=== PATIENT | female | born 2000 | race Caucasian/White ===

== ENCOUNTER 2024-08-21 17:58 | Emergency (ER) | payer OTHER, SELFPAY ==
--- NOTE | 2024-08-21 18:01 | ED_ITS ---
HPI - Ear Problem General Chief complaint: Ear Stated complaint: ear infection Time Seen by Provider: 08/21/24 18:00 Source: patient Mode of arrival: ambulatory Limitations: no limitations History of Present Illness HPI Narrative: Patient is a 24-year-old female who presents with right ear pain that started last night. Pain worsened around 4:00 a.m.. Patient has taken ibuprofen use warm compress with mild relief. It has been swimming a lot and parents full. Denies any congestion, sore throat, cough, fever, chills, nausea, vomiting, diarrhea. MD Complaint: ear pain Related Data Home Medications ?Medication ?Instructions ?Recorded ?Confirmed ?Last Taken ?Type fluoxetine 20 mg capsule mg 08/21/24 Unknown History lisdexamfetamine 50 mg capsule mg 08/21/24 Unknown History Allergies Allergy/AdvReac Type Severity Reaction Status Date / Time propofol Allergy Severe Anaphylaxis Verified 08/21/24 18:10 Review of Systems Review of Systems: All systems reviewed & are unremarkable except as noted in HPI and below Constitutional: Constitutional: Denies body ache(s), Denies chills, Denies fever(s), Denies headache(s) and Denies malaise Eyes: Eyes: Denies blurry vision, Denies eye discharge and Denies irritation ENT: Reports otalgia, Denies headache(s), Denies nasal congestion, Denies nasal discharge and Denies sore throat Cardiovascular: Cardiovascular: Denies chest pain, Denies edema, Denies palpitations and Denies dyspnea on exertion Respiratory: Respiratory: Denies cough and Denies dyspnea on exertion Gastrointestinal: Gastrointestinal: Denies abdominal pain, Denies diarrhea, Denies nausea and Denies vomiting Musculoskeletal: Musculoskeletal: Denies back pain, Denies arthralgias and Denies muscle weakness Integumentary/Breasts: Skin/Breast: Denies pruritus and Denies rash Neurologic: Denies headache(s) Psychiatric: Psychiatric: Reports no additional psychiatric complaints Endocrine: Endocrine: Denies palpitations PMFSH Comments At time of signature, agree with nursing past medical, surgical, social and family history. There is no relevant family history pertinent to the presenting complaint? Exam Const: General: cooperative, healthy appearing, no acute distress and well nourished Nutritional Appearance: well nourished Orienta tion/consciousness: patient oriented x3 Limitations: no limitations HENMT: Head: normal to inspection, normocephalic and atraumatic Ears: hearing grossly normal bilaterally, TM's normal bilaterally, no periauricular adenopathy and Abnormal EAC present erythema on the right, edema on the right, EAC tenderness on the right and otic discharge purulent on the right Face/Nose/Sinus: Normal external nose present, Normal nares present, Normal nasal mucous membranes and turbinates present, No nasal discharge present, normal facial exam and sinuses nontender Face and sinus: normal facial exam and sinuses nontender Mouth: Yes Normal oral and palatal mucosa present, Yes lip normal, Yes tongue normal and Yes moist mucous membranes Throat: posterior oropharynx normal, tonsils normal and uvula midline Eyes: General: appearance normal, both eyes and all related structures Alignment and Position: alignment normal and position normal Eyelids: eyelids normal Pupils: Equal, round and reactive pupils present EOM: EOMs intact bilaterally Neck: Neck: normal visual inspection, full ROM, no lymphadenopathy and supple Chest: Chest palpation & inspection: normal inspection of the chest Resp: Effort & Inspection: normal respiratory effort and able to speak in complete sentences Auscultation: clear to auscultation bilaterally, no crackles, no rales, no rhonchi and no wheezes Cardio: Rate: regular rate Rhythm: regular rhythm Heart sounds: S1 normal heart sound present and S2 normal heart sound present Skin: General skin exam: normal color and no rashes or lesions noted Neuro: General: patient oriented x3 and moves all extremities Cranial nerves: Yes Equal, round and reactive pupils present Cognition (Neuro): normal cognition Speech: normal speech Gait exam (Neuro): Normal gait present Extrem: General: normal to inspection and full ROM Psych: Appearance: grossly normal and well kempt Mental Status: mental status grossly normal Speech and movement: Normal speech and movement present Course Course Emergency Course: Patient is aware of diagnosis, understands and agrees to treatment plan.? Anticipatory guidance given.? Patient agrees to follow-up as directed and is aware of reasons to seek care at the emergency department.? Portions of this record may have been created with voice recognition software? Level of Care: Express Care Visit Vital Signs Vital signs: Reviewed Medical Decision Making MDM Narrative Medical decision making narrative: Pt well hydrated appearing, in no respiratory distress, hemodynamically stable. Recommend supportive care. The patient is stable at time of discharge the clinical impression was discussed and the patient was given the opportunity to ask questions, which were addressed as completely as possible given the information available at present. Anticipatory guidance and return to care precautions were discussed and the importance of primary care follow-up was stressed and encouraged. The patient voiced understanding of the plan, indications to return, and the need for follow-up. Exam findings show no acute concerns or changes Patient is appropriate for outpatient treatment and follow-up. Differential diagnosis considered: otitis media, otitis externa, otitis effusion, foreign body, cerumen impaction, viral syndrome Discharge Plan Discharge Clinical Impression: Otitis externa Qualifiers: Otitis externa type: swimmer's ear Chronicity: acute Laterality: right Qualified Code(s): H60.331 - Swimmer's ear, right ear Patient Disposition: Home Condition: Stable Instructions: Swimmer's Ear (GEN) Additional Instructions: -Ear drops as directed for 7-10 days until the pain and swelling are gone. -When administer drug into the affected ear; make sure to lay down with the affected ear facing upward, message the ear canal to help the drops reach the medial end of the canal, then remain in that position for at least 5 minutes. -Avoid using cotton tipped applicator for ears cleaning -Avoid exposing swimming or exposing the affected ear to water during the treatment period Take or alternate tylenol or ibuprofen every 4 - 6 hours if needed for pain. Follow up with primary care provider if condition is not improving in 7 days or sooner if there is new concern. Patient Language: Ukrainian Prescriptions: New ofloxacin 0.3 % drops 10 drp RIGHT EAR DAILY 7 Days Qty: 10 0RF No Action fluoxetine 20 mg capsule lisdexamfetamine 50 mg capsule Follow-up/Referrals: Amauri Joe MD [Physician] - 3 Days ([facility] care) Time of Disposition: 18:15
[2024-08-21 18:08] VITALS: BP 113/67; PULSE 106; RESP 18; TEMP 36.5; O2SAT 100
== END 2024-08-21 18:17 | disposition home or self-care (01) ==
PROVIDERS: Emergency Provider Nurse Practitioner Family
DX: H60.331 Swimmer's ear, right ear (principal)
CPT/HCPCS: 99203; G0463